=== PATIENT | male | born 1960 | race Caucasian/White ===

== ENCOUNTER → 2019-07-23 | Outpatient (CLI) | payer OTHER | LOC: CAT 13:06 | DX: R91.8 Other nonspecific abnormal finding of lung field (principal); R59.1 Generalized enlarged lymph nodes; K76.89 Other specified diseases of liver ==

== ENCOUNTER → 2020-08-20 | Outpatient (CLI) | payer OTHER | LOC: CAT 08-19 12:43 | PROVIDERS: ATTEND Pediatrics | DX: R91.8 Other nonspecific abnormal finding of lung field (principal); J98.4 Other disorders of lung ==